=== PATIENT | female | born 1980 | race Caucasian/White ===

== ENCOUNTER 2016-11-25 15:16 | Emergency (ER) | payer SELFPAY ==
[2016-11-25 15:24] VITALS: BP 156/11
[2016-11-25] MEDS ORDERED: Ibuprofen TAB* 600 MG PO ONE (15:30)
--- NOTE | 2016-11-25 15:43 | UC ---
Upper Extremity HPI - HPI Summary HPI Summary: 36 year old with fall earlier today in her driveway . she stepped on a stone wrong and rolled her left ankle. She landed hard on her left arm and left side. She has shooting pains through her left arm, she can't lift her left arm either. She also has left rib pain. She says that she felt her ribs crack. [ End ] - History of Current Complaint Chief Complaint: UCTrauma Stated Complaint: PT FELL RIB INJURY Time Seen by Provider: 11/25/16 15:28 Hx Obtained From: Patient Hx Last Menstrual Period: 11/25/16 ?: No Onset/Duration: Sudden Onset Character: Throbbing, Spasmodic Aggravating Factor(s): Movement, Lifting Alleviating Factor(s): Nothing Associated Signs And Symptoms: Positive: Negative - Allergies/Home Medications Allergies/Adverse Reactions: Allergies Allergy/AdvReac Type Severity Reaction Status Date / Time No Known Allergies Allergy Verified 11/25/16 15:24 PMH/Surg Hx/FS Hx/Imm Hx Previously Healthy: Yes - Surgical History Surgical History: Yes Surgery Procedure, Year, and Place: CHOLYCYSTECTOMY LEFT FOOT SURGERY, C- SECTION XS 2, EXPLORATORY LAP. ECTOPIC SURGERY - Family History Known Family History: Positive: Cardiac Disease, Hypertension, Diabetes - Social History Occupation: Employed Full-time Lives: With Family Alcohol Use: None Substance Use Type: None Smoking Status (MU): Never Smoked Tobacco Review of Systems Musculoskeletal: Arthralgia, Decreased ROM Is Patient Immunocompromised?: No All Other Systems Reviewed And Are Negative: Yes Physical Exam Triage Information Reviewed: Yes Appearance: Well-Appearing, No Pain Distress, Well-Nourished Vital Signs: Initial Vital Signs Temp 98.3 F 11/25/16 15:20 Pulse 94 11/25/16 15:20 Resp 14 11/25/16 15:20 BP 156/11 11/25/16 15:20 Pulse Ox 100 11/25/16 15:20 Vital Signs Reviewed: Yes Eye Exam: Normal ENT Exam: Normal Respiratory Exam: Normal Cardiovascular Exam: Normal Musculoskeletal: Positive: ROM Limited @, Other: - left humerous tenderness 2/3 down the arm with reduced ROM. left laterl rib pain to palpation. left ankle with mild swelling but no major tenderness to palpation. neck exam normal and no step off, spinous process tenderness or shoulder pain with examination. no effusion and neg homans Neurological Exam: Normal Psychological Exam: Normal Skin Exam: Normal Upper Extremity Course/Dx - Course Course Of Treatment: she declined xray of ankle. - Differential Dx/Diagnosis Differential Diagnosis/HQI/PQRI: Contusion, Strain, Sprain Provider Diagnoses: left arm contusion and costochondritis left rib pain and left ankle sprain after fall Discharge - Discharge Plan Condition: Good Disposition: HOME Patient Education Materials: Costochondritis (ED) Referrals: Misbah Burns NP [Primary Care Provider] - 4 Days
--- NOTE | 2016-11-25 16:11 | RAD ---
Indication: Left arm pain after fall. 2 views of left humerus demonstrates no fracture. No other bone or joint abnormality is identified. IMPRESSION: No fracture of the left humerus is noted.
--- NOTE | 2016-11-25 16:12 | RAD ---
Indication: Left rib pain after fall. 3 views of left ribs] dual energy PA views of the chest are reviewed. The left ribs demonstrate no fracture. No other bone or joint abnormality is identified. PA view of the chest demonstrates no pneumothorax. IMPRESSION: No fracture of the left ribs is noted.
== END 2016-11-25 16:30 | disposition home or self-care (01) ==
LOC: UCCORT 15:16
DX: S40.022A Contusion of left upper arm, initial encounter (principal); W18.30XA Fall on same level, unspecified, initial encounter; Y93.9 Activity, unspecified; Y92.9 Unspecified place or not applicable; Y99.9 Unspecified external cause status; M94.0 Chondrocostal junction syndrome [Tietze]; S93.402A Sprain of unspecified ligament of left ankle, initial encounter
CPT/HCPCS: 99212; A9270-GY; G0463

== ENCOUNTER 2017-11-20 09:10 | Emergency (ER) | payer BC, MEDICAID ==
[2017-11-20 09:25] VITALS: BP 143/91
--- NOTE | 2017-11-20 09:34 | UC ---
Throat Pain/Nasal Alonso HPI - HPI Summary HPI Summary: 37 year old female with sinus pressure . Sinus/cough x 4 weeks. Last 5 days no fever, (+) productive cough w/ green phelgm and chest pain w/ deep breaths/ movement. Sore throat x2 days. Tried otc cold meds w/ no relief. Taking ibuprofen prn w/ fever-relief, last dose today 0700. Patient has tried that he thought it and not having improvement. Since her sinus pressure has been present and nontender she decided to come in. She has also had some ear fullness and popping at times and did lead to some intermittent dizziness at times. She has never had pneumonia and has no other respiratory problems in the past. [ End ] - History of Current Complaint Chief Complaint: UCRespiratory Stated Complaint: CONGESTION FEVER CHILLS Time Seen by Provider: 11/20/17 09:21 Hx Obtained From: Patient Hx Last Menstrual Period: Sep 2017; irregular menses Onset/Duration: Gradual Onset Pain Intensity: 4 Cough: Productive - Allergies/Home Medications Allergies/Adverse Reactions: Allergies Allergy/AdvReac Type Severity Reaction Status Date / Time No Known Allergies Allergy Verified 11/20/17 09:17 Home Medications: Home Medications Blood Pressure Med 1 tab BID 11/20/17 [History] PMH/Surg Hx/FS Hx/Imm Hx Previously Healthy: Yes Cardiovascular History: Hypertension - Surgical History Surgical History: Yes Surgery Procedure, Year, and Place: CHOLYCYSTECTOMY LEFT FOOT SURGERY, C- SECTION XS 2, EXPLORATORY LAP. ECTOPIC SURGERY - Family History Known Family History: Positive: Cardiac Disease, Hypertension, Diabetes Negative: Respiratory Disease, Blood Disorder - Social History Occupation: Employed Full-time Alcohol Use: None Substance Use Type: None Smoking Status (MU): Never Smoked Tobacco - Immunization History Most Recent Tetanus Shot: UTD Review of Systems ENT: Sore Throat, Ear Ache, Nasal Discharge, Sinus Congestion, Sinus Pain/ Tenderness Respiratory: Shortness Of Breath, Cough Is Patient Immunocompromised?: No All Other Systems Reviewed And Are Negative: Yes Physical Exam Triage Information Reviewed: Yes Appearance: Well-Appearing, No Pain Distress, Well-Nourished Vital Signs: Initial Vital Signs Temp 97.7 F 11/20/17 09:18 Pulse 90 11/20/17 09:18 Resp 18 11/20/17 09:18 BP 143/91 11/20/17 09:18 Pulse Ox 98 10/14/18 09:18 Vital Signs Reviewed: Yes Eye Exam: Normal ENT Exam: Normal ENT: Positive: Nasal drainage, TM dull, Sinus tenderness Dental Exam: Normal Neck exam: Normal Neck: Positive: 1 Respiratory Exam: Normal Respiratory: Positive: Chest non-tender, Lungs clear, Normal breath sounds, No respiratory distress, No accessory muscle use. Negative: Respiratory distress, Decreased breath sounds, Accessory muscle use Cardiovascular Exam: Normal Musculoskeletal Exam: Normal Neurological Exam: Normal Psychological Exam: Normal Skin Exam: Normal Throat Pain/Nasal Course/Dx - Course Course Of Treatment: Based on her sinus pressure being present for greater than 2 weeks with persistent worsening discomfort and failing [id number] treatment we will advise to start antibiotics. She is aware of the side effects including but not limited to candidal infection as well as C. difficile. She will continue her probiotics. She will start Flonase in the morning and continue her Gretta pot and consider an antihistamine and return to the office if needed if she is not improved. - Differential Dx/Diagnosis Differential Diagnosis/HQI/PQRI: Otitis Media, Pharyngitis, Sinusitis, URI Provider Diagnoses: Sinusitis. Hypertension Discharge - Sign-Out/Discharge Documenting (check all that apply): Patient Departure All imaging exams completed and their final reports reviewed: No Studies - Discharge Plan Condition: Good Disposition: HOME Prescriptions: Amoxicillin/Clavulanate TAB* [Augmentin TAB 875*] 875 mg PO BID 7 Days #14 tab Patient Education Materials: Sinusitis (ED) Referrals: Misbah Burns NP [Primary Care Provider] - 3 Days Additional Instructions: At this time based on your duration of sinus pressure you are advised to start antibiotics and also please consider using Flonase in the morning and the neck teapot at nighttime. Return to have further evaluation if he do not feel better. Thank you. - Billing Disposition and Condition Condition: GOOD Disposition: Home
== END 2017-11-20 09:51 | disposition home or self-care (01) ==
LOC: UCCORT 09:10
DX: J32.9 Chronic sinusitis, unspecified (principal); I10 Essential (primary) hypertension
CPT/HCPCS: 99212; G0463